=== PATIENT | female | born 1975 | race Two or more races ===

== ENCOUNTER 2018-07-03 15:50 | Emergency (ER) | payer MEDICAID, OTHER ==
[2018-07-03] MEDS ORDERED: KETOROLAC 15 MG/1 ML SDV IVP ONE (16:16)
[2018-07-03] MEDS ORDERED: NS 1,000 ML IV ONE (16:16)
[2018-07-03] MEDS ORDERED: METOCLOPRAMIDE 10 MG/2 ML VIAL IVP ONE (16:16)
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
[2018-07-03 17:45] VITALS: BP 115/61
== END 2018-07-03 17:47 | disposition home or self-care (01) ==
LOC: CED 15:50
DX: G44.209 Tension-type headache, unspecified, not intractable (principal)
CPT/HCPCS: 70450-PO; 96374; J1885; J2765

== ENCOUNTER 2018-08-18 10:33 | Observation (INO) | payer MEDICAID ==
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
[2018-08-18] MEDS ORDERED: ASPIRIN 81 MG CHEWABLE TAB ONE (11:09)
[2018-08-18] MEDS ORDERED: ASPIRIN 81 MG CHEWABLE TAB PO ONE (11:11)
[2018-08-18] MEDS ORDERED: ONDANSETRON 4 MG/2 ML VIAL IVP PRN (11:34)
[2018-08-18] MEDS ORDERED: NITROGLYCERIN 0.4 MG BTL SL PRN (11:34)
--- NOTE | 2018-08-18 14:17 | CPEKG ---
Test Reason : OPEN Blood Pressure : / mmHG Vent. Rate : 057 BPM Atrial Rate : 056 BPM P-R Int : 154 ms QRS Dur : 076 ms QT Int : 406 ms P-R-T Axes : 060 019 028 degrees QTc Int : 396 ms Sinus rhythm Probable left atrial enlargement ST elev, probable normal early repol pattern Confirmed by Angle Zambrano ([id number]) on 08/18/2018 2:16:41 PM Referred By: Confirmed By:Angle Zambrano
[2018-08-18] MEDS ORDERED: ACETAMINOPHEN 325 MG TAB PO PRN (14:37)
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
[2018-08-18] MEDS ORDERED: LORazepam 0.5 MG TAB PO ONE (18:01)
[2018-08-18 20:22] VITALS: BP 120/64
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
== END 2018-08-18 20:23 | disposition home or self-care (01) ==
LOC: CED 10:33 → CEDHOLD 11:14 → F2W 13:36
PROVIDERS: ADMIT Internal Medicine; ATTEND Internal Medicine
DX: R07.89 Other chest pain (principal); Z23 Encounter for immunization; Z63.32 Other absence of family member
CPT/HCPCS: 90471; 93005; 99285; G0378; 84484-PO; G0008